=== PATIENT | male | born 1955 | race Caucasian/White ===

== ENCOUNTER 2016-06-25 12:00 | Outpatient (CLI) | payer OTHER | END 2016-06-25 19:45 | disposition home or self-care (01) | LOC: SRD 12:00 | PROVIDERS: ATTEND Family Medicine | DX: M19.011 Primary osteoarthritis, right shoulder (principal); M47.896 Other spondylosis, lumbar region; M17.12 Unilateral primary osteoarthritis, left knee | CPT/HCPCS: 72110; 73030; 73564 ==